=== PATIENT | female | born 1995 | race Caucasian/White ===

== ENCOUNTER → 2017-04-06 00:23 | Observation (INO) ==
[2017-04-05 21:05] LABS: Bilirubin,Urine Negative (Negative); Blood,Urine Small (Negative); Color,Urine Yellow (Yellow); Glucose,Urine (UA) Normal (Normal); Ketones,Urine Negative (Negative); Leukocyte Esterase,Urine Negative (Negative); Nitrite,Urine Negative (Negative); PH,Urine 7.5 pH Units (5.0-8.0); Protein,Urine Negative (Neg-Trace); Specific Gravity,Urine 1.018 (1.010-1.025)
[2017-04-05 21:07] LABS: Bacteria,Urine Few per hpf (None-Few); Hyaline Casts,Urine None Seen per lpf (None-Few); RBC,Urine 0-3 per hpf (0-3); Squamous Epithelial Cell,Urine Many per lpf (None-Few)
[2017-04-05 21:08] LABS: Clarity,Urine Cloudy (Clear)
[2017-04-05 22:30] LABS: Basophils % 0.2 %; Eosinophils # 0.1 K/mcL (0.0-0.6); Hematocrit 32.1 % (35.3-44.9); Immature Granulocytes % 0.8 % (0-4); Lymphocytes # 3.3 K/mcL (0.6-4.6); Lymphocytes % 24.6 %; Mean Corpuscular HGB Conc 34.3 g/dL (31.6-35.5); Mean Corpuscular Volume 90.4 fL (83.0-100.0); Mean Platelet Volume 10.4 fL (9.4-12.4); Monocytes # 0.9 K/mcL (0.0-1.3); Monocytes % 6.4 %; Platelet Count 202 K/mcL (140-400); Red Blood Count 3.55 M/mcL (3.82-4.97); Red Cell Distribution Width 12.7 % (11.5-14.5)
[2017-04-05 22:53] LABS: Amphetamine Screen,Urine Negative ng/mL (Cutoff=1000); Barbiturate Screen,Urine Negative ng/mL (Cutoff=200); Benzodiazepines Screen,Urine Negative ng/mL (Cutoff=200); Cannabinoid Screen,Urine Negative ng/mL (Cutoff = 50); Cocaine Screen,Urine Negative ng/mL (Cutoff= 300); Opiate Screen,Urine Negative ng/mL (Cutoff=300); Phencyclidine Screen,Urine Negative ng/mL (Cutoff=25)
[2017-04-05 23:35] LABS: Trichomonas DNA Not Detected (Not Detect)
[2017-04-05 23:36] LABS: Candida DNA Not Detected (Not Detect); Gardnerella DNA Not Detected (Not Detect)
--- NOTE | 2017-04-05 23:43 | OB/GYN Progress Note ---
Date of Encounter: 04/06/17 Time of Encounter: 23:34 - Assessment and Plan (1) 29 weeks gestation of Status: Acute at 29 2/7 EGA with shortened cervix receiving progesterone Reporting increase in small amount of LOF for the past week with consistent contractions today Nitrazine negative. fibronectin negative. Bedside ultrasound reassuring - position vertex Give magnesium sulfate bolus for tocolysis - urine contractions have decreased and the patient feels much better Give betamethasone x1 for concern of labor - next dose can be given as an out-patient (2) Vaginal discharge during Status: Acute Nitrazine negative. fibronectin negative. Vaginosis panel negative. Qualifiers: Trimester: third trimester Qualified Code(s): O26.893 - Other specified related conditions, third trimester; N89.8 - Other specified noninflammatory disorders of vagina; N89.8 - Other specified noninflammatory disorders of vagina (3) Short cervix Status: Acute Pt reports length of 1.28cm on first ultrasound, but now it is 1.65cm. Receiving progesterone from primary OB Subjective - Subjective Principal diagnosis: 29 2/7 weeks gestation Interval history: The patient is a at 29 2/7 EGA presenting to L&D with concerns about loss of fluid and contractions. She has received care at [facility]. This has been complicated by a short cervical length (1.2 cm, now 1.65cm) and has been taking progesterone. She reports that she has had intermittent small amount of loss of fluid over the past week. She is also reporting contractions today every 20-30 minutes apart with pain and pressure into her low back and pelvis. She denies recent trauma or recent intercourse. She admits to feeling fatigue. Reports +FM. Denies fevers, chills, headaches, blurred vision, N/V, vaginal bleeding, dysuria, change in bowels, or LE edema. She reports that on last ultrasound her baby was breech. She has never had any abdominal or vaginal surgeries and her prior pregnancies were term gestation. I examined this patient and my medical decision-making was reviewed with the Resident Physician. I agree with the documented findings, disposition and treatment plan as described except to the extent set forth below. Antepartum ROS: loss of fluid, movement normal, contractions, no vaginal bleeding Objective - Vital Signs Vital Signs: Intake and Output 04/05/17 04/05/17 04/05/17 07:59 15:59 23:59 Other: Weight 61.9 kg Patient Weight 04/05/17 23:59 Weight 61.9 kg - Exam FHR: auscultation normal FHR comments: Baseline 140's and reassuring. [place] irregular. Auscultation: bilateral: normal Abdomen: Present: normal appearance, soft. Absent: tenderness Uterus: Present: normal, firm - Labs Labs: Abnormal lab results WBC 13.5 K/mcL (4.3-11.1) H 04/05/17 22:10 RBC 3.55 M/mcL (3.82-4.97) L 04/05/17 22:10 Hgb 11.0 g/dL (11.5-15.4) L 04/05/17 22:10 Hct 32.1 % (35.3-44.9) L 04/05/17 22:10 Neutrophils # 9.0 K/mcL (1.6-8.9) H 04/05/17 22:10 Urine Clarity Cloudy (Clear) A 04/05/17 20:55 Urine Blood Small (Negative) H 04/05/17 20:55 Urine Urobilinogen 2.0 mg/dL (Normal) H 04/05/17 20:55 Urine Microscopic WBC 3-5 per hpf (0-3) H 04/05/17 20:55 Ur Squamous Epith Cells Many per lpf (None-Few) H 04/05/17 20:55
[~2017-04-06 00:23] MED LIST: Betamethasone Acet/SodPhos 6 MG/ML MDV IM SCH; Ringers Solution, Lactated 1,000 ML IVC SCH
== END | disposition home or self-care (01) ==
LOC: 1NENULAB
PROVIDERS: ADMIT Obstetrics & Gynecology; ATTEND Obstetrics & Gynecology

== ENCOUNTER → 2017-04-06 20:38 | Observation (INO) ==
--- NOTE | 2017-04-06 18:27 | OB/GYN Progress Note ---
Date of Encounter: 04/06/17 Time of Encounter: 18:20 - Assessment and Plan (1) contractions Current Visit: Yes Status: Acute 21 y/o @ 29+6 weeks presents to L&D with ctxs, she was seen yesterday with the same complaints, cervix was checked and closed, UA sent, not concerning for UTI steroids given yesterday, will give 2nd dose today, cervix checked today and closed, patient counseled to follow up with her OB provider FHT reactive Objective - Vital Signs Vital Signs: Intake and Output 04/06/17 04/06/17 04/06/17 07:59 15:59 23:59 Other: Weight 60.9 kg Patient Weight 04/06/17 23:59 Weight 60.9 kg
[~2017-04-06 20:38] MED LIST changes: -Ringers Solution, Lactated 1,000 ML IVC SCH; +Ringers Solution, Lactated 1,000 ML ONE
== END | disposition home or self-care (01) ==
LOC: 1NENULAB
PROVIDERS: ADMIT Student in an Organized Health Care Education/Training Program; ATTEND Student in an Organized Health Care Education/Training Program